=== PATIENT | female | born 1945 | race Caucasian/White ===

== ENCOUNTER 2016-08-31 05:18 | Day surgery (SDC) | payer MEDICARE ==
[2016-08-30 15:12] LABS: HEMATOCRIT 39.4 % (36.0-48.0); HEMOGLOBIN 12.9 g/dL (12-16); MCH 28.5 pg (26.0-34.0); MCHC 32.7 g/dL (31.0-37.0); MEAN PLATELET VOLUME 9.6 fL (7.4-10.4); RBC 4.53 10x6/uL (4.00-5.40); RDW 13.7 % (11.5-14.5); WBC 7.6 10x3/uL (4.8-10.8)
[~2016-08-31] VITALS: Ht 167.6 cm; Wt 84.4 kg
[~2016-08-31 05:18] MED LIST: OMEPRAZOLE20 M1 PO; PROAIR HFA8.5 GM INH; SINGULAIR10 MG PO; SYMBICORT 16010.2 GM INH; SYNTHROID25 MCG PO; ZETIA10 MG PO; ZOLOFT25 MG PO
[2016-08-31 06:47] VITALS: BP 142/63; Ht 167.6 cm; Wt 84.4 kg
[2016-08-31] MEDS ORDERED: HYDROCODON-ACE1 EAC7 PO (09:01)
--- NOTE | 2016-08-31 09:30 | NUR ---
DR PRINCE CONSULTED ABOUT O2 SAT AND ORDERED DUOMNEB UPDRAFT IN RR
--- NOTE | 2016-08-31 11:42 | OP ---
PATIENT NAME: CEDRICK CHAN MEDICAL RECORD: [id number] :43 LOCATION:D[facility] ADMISSION DATE: SURGEON: MOLINA PIZARRO MD DATE OF OPERATION: 08/31/2016 SURGEON: Molina Pizarro MD PREOPERATIVE DIAGNOSES: 1. Right upper quadrant pain. 2. Biliary dyskinesia. POSTOPERATIVE DIAGNOSES: 1. Right upper quadrant pain. 2. Biliary dyskinesia. PROCEDURE PERFORMED: Laparoscopic cholecystectomy. ANESTHESIA: General. COMPLICATIONS: None. SPECIMENS: Gallbladder. ESTIMATED BLOOD LOSS: 30 cc. Case is clean contaminated. OPERATIVE COURSE: After consent was obtained, the patient was taken to the operating room and placed in the supine position on the operating table. Next, general anesthesia was given via endotracheal intubation after a timeout was performed that confirmed the correct patient and procedure. The abdomen was prepped and draped in typical sterile fashion. Local anesthetic was injected just above the umbilicus. A stab incision was made with an 11-blade scalpel. Using a 5-mm bladeless optical trocar, the abdomen was entered under direct laparoscopic vision. Adequate pneumoperitoneum was achieved. The abdominal cavity was inspected. No evidence of bowel injury. No evidence of bleeding. The patient was placed in a steep reverse Trendelenburg position. All remaining trocars were then after the administration of local anesthetic, two 5-mm trocars in the right upper quadrant and 11-mm trocar in the subxiphoid position. The fundus of the gallbladder was grasped and retracted cephalad. The infundibulum was grasped and retracted laterally. The peritoneum was incised using electrocautery. Blunt dissection was performed until the critical view was obtained. The cystic duct lateral, cystic artery medial, liver in a posterior window. Two clips were placed in the proximal cystic artery. Three clips were placed in the proximal cystic duct, 1 clip distal. The duct and artery were then transected with laparoscopic Metzenbaum scissors. The remaining portion of the gallbladder was then dissected off the liver bed using electrocautery. Once complete, it was grasped with the tenaculum and removed through the 11-mm trocar and sent for permanent pathology. Next, the operative field was copiously irrigated and suctioned. Careful attention was paid to hemostasis ____ liver bed, which was obtained with electrocautery. The operative site was inspected. There was ____ place in the cystic duct. Two clips in place in the cystic artery and again the right upper quadrant was again was copiously irrigated and suctioned. The abdominal cavity was inspected. No evidence of bowel injury. No evidence of bleeding, no evidence of bile leak. At this time, all remaining OPERATIVE REPORT [id number] ROCIOCEDRICK HIMANSHU instruments removed. The abdomen was desufflated. Trocars were removed. Skin was closed with 4-0 Monocryl, Mastisol and Steri-Strips. At the end of the case, all needle and instrument counts were correct. No complications occurred. The patient was extubated and transferred to the PACU in stable condition. TRANSINT:[id number] Voice Confirmation ID: [id number] DOCUMENT ID: [id number] MOLINA PIZARRO MD at 1142 CC: [id number] DICTATION DATE: 08/31/16 0858 LEMON GROWER: 08/31/16 0913 [id number] [place] [address]
== END 2016-08-31 12:15 | disposition home or self-care (01) ==
LOC: D.OPS 05:18 → D.PAN 08:00 → D.OPS 12:15
PROVIDERS: Anesthesiology
DX: K81.1 Chronic cholecystitis (principal)

== ENCOUNTER → 2017-02-16 12:55 | Outpatient (CLI) | payer MEDICARE ==
[~2017-02-16 12:55] MED LIST changes: +HYDROCODON-ACE1 EAC7 PO
== END | disposition home or self-care (01) ==
LOC: D.US 12:55
DX: N28.1 Cyst of kidney, acquired (principal)

== ENCOUNTER → 2017-11-21 20:31 | Outpatient (CLI) | payer MEDICARE | END | disposition home or self-care (01) | LOC: D.MAMMO 15:45 | DX: Z12.31 Encounter for screening mammogram for malignant neoplasm of breast (principal) ==

== ENCOUNTER 2018-03-01 19:24 | Emergency (ER) | payer MEDICARE ==
[~2018-03-01] VITALS: Ht 167.6 cm; Wt 61.4 kg
[2018-03-01 19:26] VITALS: Ht 167.6 cm; Wt 61.4 kg
[2018-03-01 21:57] LABS: BASOPHILS 0.1 % (0-2); EOSINOPHILS 0.7 % (0-7); HEMATOCRIT 45.9 % (36.0-48.0); IMMATURE GRANULOCYTES 0.2 % (0-5); LYMPHOCYTES 9.9 % (15-50); MCH 28.6 pg (26.0-34.0); MCHC 32.7 g/dL (31.0-37.0); MCV 87.4 fL (80.0-100.0); MEAN PLATELET VOLUME 9.6 fL (7.4-10.4); MONOCYTES 6.2 % (2-11); NEUTROPHILS 82.9 % (40-80); PLATELET COUNT 317 10x3/uL (130-400); RBC 5.25 10x6/uL (4.00-5.40); RDW 13.6 % (11.5-14.5); WBC 18.9 10x3/uL (4.8-10.8)
[2018-03-01 21:58] LABS: APPEARANCE CLEAR (CLEAR); BILIRUBIN 1+ (NEGATIVE); COLOR DK YELLOW (YELLOW); GLUCOSE NEGATIVE (NEGATIVE); KETONE NEGATIVE (NEGATIVE); NITRITE NEGATIVE (NEGATIVE); PROTEIN 1+ mg/dL (NEGATIVE); SPECIFIC GRAVITY 1.025 (1.005-1.020)
[2018-03-01 22:00] LABS: RED CELLS - URINE 0-5 /hpf (0-5)
[2018-03-01 22:01] LABS: BACTERIA FEW /hpf (NONE SEEN); EPITHELIAL CELLS 0-5 /hpf (0-5); HYALINE CAST 0-5 /lpf (NONE SEEN)
[2018-03-01 22:05] LABS: ALBUMIN 3.3 g/dL (3.4-5.0); ALKALINE PHOSPHATASE 88 U/L (46-116); ALT (SGPT) 20 U/L (10-68); BILIRUBIN - TOTAL 0.66 mg/dL (0.2-1.3); CALC OSMOLALITY 285 mosm/kg (275-300); CALCIUM 9.1 mg/dL (8.5-10.1); CARBON DIOXIDE 30.8 mmol/L (21.0-32.0); CHLORIDE - SERUM 108 mmol/L (98-107); GLUCOSE 155 mg/dL (74-106); POTASSIUM - SERUM 4.5 mmol/L (3.5-5.1); PROTEIN - SERUM 6.9 g/dL (6.4-8.2); SODIUM 142 mmol/L (136-145); UREA NITROGEN 13 mg/dL (7-18); eGFR NON AFRICAN AMERICAN 58 mL/min (90-120)
[2018-03-01 22:08] LABS: TROPONIN-I < 0.017 ng/mL (0.000-0.060)
[2018-03-01] MEDS ORDERED: ZOFRAN8 MG PO (23:51)
[2018-03-02 00:24] VITALS: BP 123/73
== END 2018-03-02 00:26 | disposition home or self-care (01) ==
LOC: D.ER 19:24
PROVIDERS: Family Medicine
DX: K52.9 Noninfective gastroenteritis and colitis, unspecified (principal)

== ENCOUNTER 2018-11-28 13:38 | Emergency (ER) | payer MEDICARE ==
[~2018-11-28] VITALS: Ht 167.6 cm; Wt 86.0 kg
[~2018-11-28 13:38] MED LIST changes: +ZOFRAN8 MG PO
[2018-11-28 13:47] VITALS: Ht 167.6 cm; Wt 86.0 kg
[2018-11-28 14:25] LABS: BASOPHILS 0.3 % (0-2); HEMATOCRIT 39.3 % (36.0-48.0); IMMATURE GRANULOCYTES 0.1 % (0-5); LYMPHOCYTES 34.6 % (15-50); MCH 28.6 pg (26.0-34.0); MCHC 33.1 g/dL (31.0-37.0); MCV 86.4 fL (80.0-100.0); MEAN PLATELET VOLUME 9.7 fL (7.4-10.4); MONOCYTES 9.8 % (2-11); NEUTROPHILS 53.2 % (40-80); PLATELET COUNT 310 10x3/uL (130-400); RBC 4.55 10x6/uL (4.00-5.40); RDW 13.3 % (11.5-14.5); WBC 7.9 10x3/uL (4.8-10.8)
[2018-11-28 14:39] LABS: ALBUMIN 3.8 g/dL (3.4-5.0); ALKALINE PHOSPHATASE 101 U/L (46-116); ALT (SGPT) 63 U/L (10-68); CALC OSMOLALITY 282 mosm/kg (275-300); CALCIUM 9.3 mg/dL (8.5-10.1); CHLORIDE - SERUM 103 mmol/L (98-107); CREATININE - SERUM 0.6 mg/dL (0.6-1.3); PROTEIN - SERUM 7.5 g/dL (6.4-8.2); SODIUM 141 mmol/L (136-145); UREA NITROGEN 17 mg/dL (7-18); eGFR NON AFRICAN AMERICAN > 90 mL/min (90-120)
[2018-11-28 14:42] LABS: GLUCOSE 104 mg/dL (74-106)
[2018-11-28 14:51] LABS: CKMB 1.2 U/L (0.0-3.6); CREATINE KINASE 90 UL (21-215); MAGNESIUM - SERUM 1.9 mg/dL (1.8-2.4); TROPONIN-I < 0.017 ng/mL (0.000-0.060)
[2018-11-28 15:13] LABS: INR 1.02 (0.85-1.17); PROTIME 12.9 SECONDS (11.6-15.0)
[2018-11-28 15:59] LABS: APTT 28.2 SECONDS (22.8-39.4)
[2018-11-28 16:36] VITALS: BP 126/66
== END 2018-11-28 16:28 | disposition home or self-care (01) ==
LOC: D.ER 13:38
PROVIDERS: Emergency Medicine
DX: R10.13 Epigastric pain (principal)

== ENCOUNTER → 2019-01-10 07:55 | Outpatient (CLI) | payer MEDICARE ==
[2018-11-28 13:47] VITALS: BMI 30.6
== END | disposition home or self-care (01) ==
LOC: D.CT 07:55
PROVIDERS: ATTEND Internal Medicine Gastroenterology
DX: R10.9 Unspecified abdominal pain (principal)